=== PATIENT | male | born 1960 | race Caucasian/White ===

== ENCOUNTER 2025-06-04 08:14 | Day surgery (SDC) | payer OTHER, SELFPAY ==
[2025-06-04] VITALS (7 sets, daily range): BP systolic 97–114; BP diastolic 56–78; PULSE 61–73; RESP 14–18; TEMP 36.1–36.3; O2SAT 96–99; BMI 44.4
[2025-06-04] MEDS: Lactated Ringers 1,000 ML 15 ML IV (08:57)
--- NOTE | 2025-06-04 08:57 | H&P.OPEN ---
HPI - General General Date of Service: 06/04/25 HPI Narrative ZHEN BARLOW, is a 64 M who presents for screening colonoscopy. Patient last colonoscopy was 2012 negative. Patient denies any changes since office visit. Office visit 04/25/2025 HPI HPI: 64-year-old male presents for screening colonoscopy. [facility] Patient's last colonoscopy was in 2012 negative. Patient has bowel movements daily denies any blood. Patient denies any family history of colon cancer. Patient denies any chronic abdominal pain/nausea/vomiting/reflux. [facility] Medical History (Updated 05/30/25 @ 09:36 by Mayra Stokes) Wears contact lenses Wears glasses Open wound Back pain Injury of head and neck Gastric reflux History of hiatal hernia Former smoker CPAP (continuous positive airway pressure) dependence History of edema History of stress test Sleep apnea Arthritis Cellulitis of left lower leg HTN (hypertension) Home Medications ?Medication ?Instructions ?Recorded ?Last Taken ?Type furosemide 20 mg tablet (Lasix) 20 mg PO QAM 04/25/25 Unknown History spirolena/sea kelp powder 1 ea PO DAILY 04/25/25 Unknown History cholecalciferol (vitamin D3) 50 50 mcg PO DAILY 05/30/25 Unknown History mcg (2,000 unit) capsule (Vitamin D3) Allergy/AdvReac Type Severity Reaction Status Date / Time No Known Allergies Allergy Verified 06/04/25 08:47 Family History (Updated 04/25/25 @ 12:57 by Tomasa Larsen) Father Cancer lung Sister Thyroid disorder Surgical History (Updated 05/30/25 @ 09:27 by Mayra Stokes) History of neck surgery H/O right wrist surgery History of hip replacement Social History (Updated 04/25/25 @ 12:57 by Tomasa Larsen) Smoking Status: Former smoker alcohol intake: never Past Medical/Surgical History Planned Operation Planned Operative Procedure(s): COLONOSCOPY Previous Hospitalizations/Surgeries HX Hospitalizations: No Any Problems With Anesthesia: No You/Your Family Experience Fever (Hyperthermia) With Anes: No Cholinesterase deficiency: No Cardiovascular Hx Hypertension: No Respiratory Hx Sleep Apnea: Yes CPAP: Yes (WAS UNABLE TO WEAR MASK) BIPAP: No Hx Respiratory Tract Infection/Cold (presently): No Result (for STOP score): Positive Smoking Status: Former smoker Neurological Does patient have nerve stimulator: No Miscellaneous Recent Exposure to Contagious Disease: No Allergies No Known Allergies Allergy (Verified 06/04/25 08:47) Discharge Is Pt Admitted From a [facility]sp, or a Jail: No Who Could Help: 'S DAUGHTER After D/C, Where Do you Plan to Go: Return Home Vital Signs Vital Signs Vital Signs: 06/04/25 08:48 06/04/25 08:48 Temperature 97.3 F L Temperature Source Temporal Pulse Rate 73 Respiratory Rate 16 Respiratory Pattern Normal Blood Pressure 114/78 Blood Pressure Mean 90 Blood Pressure Source Monitor Blood Pressure Position Semi-Fowlers Blood Pressure Location Left Arm Pulse Ox 99 Oxygen Delivery Method Room Air Weight Weight: 337 lb 4.916 oz Body Mass Index (BMI) 44.4 Physical Exam Const alert, oriented x3 and no apparent distress HEENT normocephalic and head/scalp atraumatic Resp normal respiratory effort Cardio regular rate GI soft to palpation and non-tender; Negative for non-distended Palpation: Negative for guarding Extremity no clubbing, cyanosis or edema Skin no rashes or lesions noted Neuro CN's II-XII intact bilaterally Psych mental status grossly normal Assessment & Plan Assessment/Plan (1) Encounter for screening for malignant neoplasm of colon: Surgery Risks - Colonoscopy I discussed with the patient the risks of the procedure: Yes Risks Include but are not Limited To: Risks include but are not limited to: Bleeding, perforation requiring further surgery, inability to complete colonoscopy requiring barium enema.
--- NOTE | 2025-06-04 09:44 | PRE.ANES_ITS ---
ASA Classification* ASA Classification ASA Classification: 3 Assessment & Plan Anesthesia* Anesthesia Assessment Anesthesia Assessment: Discussed sedation and/or anesthesia options, risks, benefits, and alternatives with patient/parents/legal guardian/POA. Questions invited. The patient/parents/legal guardian/POA seems to understand and agrees to proceed with anesthesia plan. Reviewed the physical assessment, medical history, allergy history and patient home medications list prior to surgery/procedure/anesthetic and documented any changes. Performed airway and anesthesia risk assessments. Anesthesia Type Anesthesia Type: MAC History Source History Obtained from:: Patient and Chart Anesthesia Focused Assessment* Temperature: 97.3 F Pulse Rate: 73 Blood Pressure: 114/78 Respiratory Rate: 16 Pulse Ox: 99 Oxygen Delivery Method: Room Air Airway Assessment Mouth opens: >3 cm Mallampati Score: IV Teeth Condition: Caps/Crowns (Patient has a cap On the left upper molar. 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 When Was Last Pacemaker Check QUESTION #4 FULL TEXT: You/Your Family Experience fever (hyperthermia) with Anesthesia Last Oral Intake Last Oral intake: Last Oral Intake NPO since 23:00 06/04/25 08:48 Meds taken in AM with sips of No 06/04/25 08:48 water? Meds patient instructed to take am of surgery PONV PONV - cranberry farm supervisor: PONV - cranberry farm supervisor Female No 05/30/25 09:27 HX of Motion Sickness No 05/30/25 09:27 HX of N/V After Surgery No 05/30/25 09:27 Non-Smoker Yes 05/30/25 09:27 Duration of Surgery greater No 05/30/25 09:27 than 60 minutes Number of Risk Factors 1 05/30/25 09:27 PONV Score Low Risk 05/30/25 09:27 Height & Weight Height & Weight: Anesthesia: Height & Weight Height 6 ft 1 in 06/04/25 08:48 Weight: 153 kg 06/04/25 08:48 Body Mass Index (BMI) 44.4 06/04/25 08:48 Respiratory Assessment Respiratory Assessment - cranberry farm supervisor: Respiratory Tract Infection Hx - cranberry farm supervisor Hx Respiratory Tract Infection No 06/04/25 08:58 STOP Sleep Apnea STOP Sleep Apnea - cranberry farm supervisor: STOP Sleep Apnea - cranberry farm supervisor Hx Hypertension No 06/04/25 08:58 Hx Sleep Apnea Yes 06/04/25 08:58 CPAP Yes: WAS UNABLE TO WEAR MASK 06/04/25 08:58 BIPAP No 06/04/25 08:58 Do you snore loudly (louder than talking or can be heard Do you often feel tired/ fatigued/ sleepy during daytime? Has anyone observed you stop breathing during sleep? STOP Results Positive 06/04/25 09:38 QUESTION #5 FULL TEXT : Do you snore loudly (louder than talking or can be heard through closed doors)? 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 Specify any problems Hx of Preganancy in last 3 N/A 05/30/25 09:27 Months Nurse Filling Out Transfusion [facility] 05/30/25 09:27 & Questions: Date: 05/30/25 05/30/25 09:27 Time: 09:37 05/30/25 09:27 Patient unable to answer at this time (ie. confused, unrespo /Reproduction History /Reproductive History - cranberry farm supervisor: /Reproductive Hx- cranberry farm supervisor Hx Now Gestational Age (in weeks): EDC: Hx Hx Para Hx Section SAB Active Medications Active Medications: Current Medications Generic Name Dose Route Start Last Admin Trade Name Freq PRN Reason Stop Dose Admin Lactated Ringer's 1,000 mls @ 15 mls/hr 06/04/25 08:45 06/04/25 08:57 IV 15 mls/hr .Q48H LORE Administration PFSH Medical History Wears contact lenses Wears glasses Open wound Back pain Injury of head and neck Gastric reflux History of hiatal hernia Former smoker CPAP (continuous positive airway pressure) dependence History of edema History of stress test Sleep apnea Arthritis Cellulitis of left lower leg HTN (hypertension) Home Medications ?Medication ?Instructions ?Recorded ?Last Taken ?Type furosemide 20 mg tablet (Lasix) 20 mg PO QAM 04/25/25 Unknown History spirolena/sea kelp powder 1 ea PO DAILY 04/25/25 Unkno wn History cholecalciferol (vitamin D3) 50 50 mcg PO DAILY Unknown History mcg (2,000 unit) capsule (Vitamin D3) Allergy/AdvReac Type Severity Reaction Status Date / Time No Known Allergies Allergy Verified 06/04/25 08:47 Family History Father Cancer lung Sister Thyroid disorder Surgical History History of neck surgery H/O right wrist surgery History of hip replacement Social History Smoking Status: Former smoker alcohol intake: never Review of Systems (Anesthesia) ROS Narrative System reviewed and no additional complaints, except as documented.
--- NOTE | 2025-06-04 10:33 | OP.COLON_ITS ---
Patient Name: Volodymyr Bethea Procedure Date: 06/04/2025 10:01 AM Date of : 1960 Age: 64 Procedure: Colonoscopy Indications: Screening for colorectal malignant neoplasm Providers: Lydia Hanna MD Referring MD: Lydia Hanna MD Medicines: Monitored Anesthesia Care Patient Profile: This is a 64 year old male. Last Colonoscopy: 2012. Complications: No immediate complications. Procedure: Pre-Anesthesia Assessment: - Prior to the procedure, a History and Physical was performed, and patient medications and allergies were reviewed. The patient's tolerance of previous anesthesia was also reviewed. The risks and benefits of the procedure and the sedation options and risks were discussed with the patient. All questions were answered, and informed consent was obtained. Prior Anticoagulants: The patient has taken no anticoagulant or antiplatelet agents. ASA Grade Assessment: Per anesthesia. After reviewing the risks and benefits, the patient was deemed in satisfactory condition to undergo the procedure. After I obtained informed consent, the scope was passed under direct vision. Throughout the procedure, the patient's blood pressure, pulse, and oxygen saturations were monitored continuously. The Colonoscope was introduced through the anus and advanced to the cecum, identified by the appendiceal orifice, ileocecal valve and palpation. The colonoscopy was performed without difficulty. The patient tolerated the procedure well. The quality of the bowel preparation was good. Scope In: 10:14:16 AM Scope Withdrawal Time 0 hours 9 minutes 25 seconds Scope Out: 10:28:09 AM Total Procedure Duration Time 0 hours 13 minutes 53 seconds Findings: The perianal and digital rectal examinations were normal. Multiple small-mouthed diverticula were found in the sigmoid colon and descending colon. The exam was otherwise without abnormality on direct and retroflexion views. Impression: - Diverticulosis in the sigmoid colon and in the descending colon. - The examination was otherwise normal on direct and retroflexion views. - No specimens collected. Recommendation: - Discharge patient to home. - Resume previous diet and high fiber diet. - Continue present medications. - Repeat colonoscopy in 10 years for screening purposes. Procedure Code(s): --- Professional --- G0121, PT, Colorectal cancer screening; colonoscopy on individual not meeting criteria for high risk Diagnosis Code(s): --- Professional --- Z12.11, Encounter for screening for malignant neoplasm of colon K57.30, Diverticulosis of large intestine without perforation or abscess without bleeding CPT copyright 2021 [employer]. All rights reserved. The codes documented in this report are preliminary and upon ash kier boiler review may be revised to meet current compliance requirements. MD Lydia Ramirez MD 06/04/2025 10:32:47 AM This report has been signed electronically. Number of Addenda: 0 Note Initiated On: 06/04/2025 10:01 AM
--- NOTE | 2025-06-04 10:33 | OP.PROVAT_ITS ---
06/04/2025 [facility] Re : Colonoscopy procedure for Volodymyr Bethea [facility] This procedure was performed on Wednesday, June 04, 2025. My impressions and recommendations are as follows: Impressions : - Diverticulosis in the sigmoid colon and in the descending colon. - The examination was otherwise normal on direct and retroflexion views. - No specimens collected. Recommendations : - Discharge patient to home. - Resume previous diet and high fiber diet. - Continue present medications. - Repeat colonoscopy in 10 years for screening purposes. My findings are described in the full procedure note, which is enclosed. If I can be of further assistance, please feel free to contact me at Doctor phone number(s): , Work: . Sincerely, MD Lydia Ramirez MD 06/04/2025 10:32:47 AM This report has been signed electronically.
--- NOTE | 2025-06-04 10:37 | PCM.POST.ANE ---
Anesthesia: Postop Eval I Current Vital Signs Temperature: 97 F Pulse Rate: 62 Blood Pressure: 100/56 Respiratory Rate: 14 Pulse Ox: 98 Oxygen Delivery Method: Nasal Cannula Oxygen Flow Rate (L/min): 3 Assessment Airway patent: Yes Spontaneous unlabored respirations: Yes Mental status: Asleep nausea: No Vomiting: No Anesthesia Complication: No Fluid Hydration Crystalloid volume administer (ml): 400 Total IV fluid infused: 400 Progress Note Anesthesia document: Postop Eval 1 completed: Yes
--- NOTE | 2025-06-04 13:57 | PCM.POSTANE2 ---
Anesthesia Postop Eval I Sum Postop Eval Completion status Anesthesia document: Postop Eval 1 completed: Yes Anesthesia Postop Eval I Summary Anesthesia Postop Eval I Summary: Anesthesia Postop Eval I: Assessment Summary Airway patent Yes 06/04/25 13:57 Spontaneous unlabored Yes 06/04/25 13:57 respirations Mental status Asleep 06/04/25 13:57 nausea No 06/04/25 13:57 Vomiting No 06/04/25 13:57 Anesthesia Postop Eval I: Fluid Summary Crystalloid volume administer 400 06/04/25 13:57 (ml) Colloids volume administered ( ml) Blood Product volume administered (ml) Total IV fluid infused 400 06/04/25 13:57 Anesthesia Postop Eval I: Summary Notes Anesthesia Complication No 06/04/25 13:57 Anesthesia Complication Comment: Post-operative progress note Anesthesia: Postop Eval II Evaluation Mental status: Awake and Calm Pain Level: 0 nausea: No Vomiting: No Complications Anesthesia Complication: No
== END 2025-06-04 11:11 | disposition home or self-care (01) ==
LOC: EN 08:18 → AC 08:19
PROVIDERS: Referring Provider Surgery; Visit Provider Surgery
PROC: 0DJD8ZZ Inspection of Lower Intestinal Tract, Via Natural or Artificial Opening Endoscopic (ICD-10-PCS; CPT 45378; principal; 2025-06-04 09:25)
DX: Z12.11 Encounter for screening for malignant neoplasm of colon (principal); K57.30 Diverticulosis of large intestine without perforation or abscess without bleeding; Z87.891 Personal history of nicotine dependence; I10 Essential (primary) hypertension; G47.30 Sleep apnea, unspecified; Z99.89 Dependence on other enabling machines and devices; Z79.899 Other long term (current) drug therapy; Z96.649 Presence of unspecified artificial hip joint
CPT/HCPCS: 45378; J2405